=== PATIENT | female | born 1975 | race Caucasian/White ===

== ENCOUNTER 2019-11-01 18:00 | Emergency (ER) | payer SELFPAY ==
[~2019-11-01] VITALS: Ht 162.6 cm; Wt 77.1 kg
[2019-11-01] MEDS ORDERED: DICYCLOMINE HCL LIQ 10 MG/5 ML UDC PO ONE (18:45)
[2019-11-01] MEDS ORDERED: MAG HYDROX/AL HYDROX/SIMETH 30 ML LIQUID UDC PO ONE (18:45)
[2019-11-01] MEDS ORDERED: MAG HYDROX/AL HYDROX/SIMETH 30 ML LIQUID UDC ONE ×2 (18:49)
[2019-11-01] MEDS ORDERED: DICYCLOMINE HCL LIQ 10 MG/5 ML UDC ONE (18:50)
[2019-11-01 19:00] LABS: BASOPHILS # (AUTO) 0.1 K/uL (0.0-8.0); BASOPHILS % (AUTO) 0.9 % (0.0-2.0); EOSINOPHILS # (AUTO) 0.3 K/uL (0.0-0.7); HEMATOCRIT 32.4 % (31.2-41.9); HEMOGLOBIN 10.8 g/dL (10.9-14.3); LYMPHOCYTES # (AUTO) 1.9 K/uL (20.0-40.0); MEAN CORPUSCULAR HEMOGLOBIN 28.5 uug (24.7-32.8); MEAN CORPUSCULAR HGB CONC 33 g/dL (32.3-35.6); MEAN CORPUSCULAR VOLUME 85.7 fL (75.5-95.3); MONOCYTES # (AUTO) 0.6 K/uL (2.0-10.0); MONOCYTES % (AUTO) 9.8 % (0.0-11.0); NEUTROPHILS # (AUTO) 3.3 K/uL (1.8-8.9); NEUTROPHILS % (AUTO) 53.3 % (38.5-71.5); PLATELET COUNT (AUTO) 242 K/uL (179-408); RED BLOOD CELL COUNT(AUTO) 3.78 MIL/uL (3.63-4.92); WHITE BLOOD COUNT (AUTO) 6.2 K/uL (3.8-11.8)
--- NOTE | 2019-11-01 19:03 | NUR ---
Ultrasound at bedside.
[2019-11-01 19:21] LABS: BILIRUBIN,DIRECT 0.1 mg/dL (0.0-0.2); BILIRUBIN,TOTAL 0.2 mg/dL (0.2-1.0); CREATININE 0.8 mg/dL (0.6-1.3); POTASSIUM 3.8 mmol/L (3.5-5.1); TOTAL PROTEIN, SERUM 6.2 g/dL (6.4-8.2)
[2019-11-01] MEDS ORDERED: HYDROCODONE/APAP 10-325 MG TABLET PO ONE (19:30)
[2019-11-01] MEDS ORDERED: HYDROCODONE/APAP 10-325 MG TABLET ONE (19:33)
--- NOTE | 2019-11-01 19:43 | NUR ---
Patient discharged to home in stable conditon. Written and verbal after care instructions given. Patient verbalizes understanding of instructions. Patient ambulating with steady gait. Patient denies being homeless and stated that she "has somewhere to go". Patient refuses to state where she's going.
[2019-11-01 19:45] VITALS: BP 124/68
== END 2019-11-01 19:45 | disposition home or self-care (01) ==
LOC: ER 18:02
DX: R10.13 Epigastric pain (principal)
CPT/HCPCS: 36415; 70030-TC; 71045; 85025; 85730; 93005; A4663

== ENCOUNTER 2019-11-06 22:13 | Emergency (ER) | payer SELFPAY ==
[~2019-11-06] VITALS: Ht 167.6 cm; Wt 103.4 kg
[2019-11-06] MEDS ORDERED: HYDROCODONE/APAP 10-325 MG TABLET PO ONE (22:30)
[2019-11-06] MEDS ORDERED: ASPIRIN 81 MG TAB.CHEW PO ONE (22:30)
[2019-11-06] MEDS ORDERED: HYDROCODONE/APAP 10-325 MG TABLET ONE (22:37)
[2019-11-06] MEDS ORDERED: ASPIRIN 81 MG TAB.CHEW ONE (22:37)
--- NOTE | 2019-11-06 22:45 | NUR ---
PT BIB [facility] WITH C/O SUBSTERNAL CHEST PAIN X 30 MIN. PER EMS, PT REFUSED EKG.
--- NOTE | 2019-11-06 22:45 | NUR ---
Lab at bedside. Pt is refusing blood to be drawn. Dr. Cruz notified.
--- NOTE | 2019-11-06 22:55 | NUR ---
Patient does not wish to proceed with medical care recommended by Dr. Cruz. Patient given information related to possible complications, up to and including , which could occur as a result of leaving the hospital at this time. Patient verbalizes understanding of risks involved due to leaving against medical advice. Patient REFUSED to sign AMA form.
--- NOTE | 2019-11-06 22:58 | NUR ---
Pt states she is NOT homeless. Pt walked out of ER.
== END 2019-11-06 23:03 | disposition left against medical advice (07) ==
LOC: ER 22:13
DX: R07.9 Chest pain, unspecified (principal)
CPT/HCPCS: 71045; 93005; A4663